=== PATIENT | male | born 1960 | race Caucasian/White ===

== ENCOUNTER 2025-02-11 21:51 | Emergency (ER) | payer BC, SELFPAY ==
[2025-02-11 21:53] VITALS: BP 150/103
[2025-02-11] MEDS: TORADOL 30 MG IM (22:39)
[2025-02-11 22:40] VITALS: BMI 30.9
[2025-02-11] MEDS: ROXICODONE 5 MG PO (23:28)
[2025-02-11 23:40] VITALS: BP 172/99
[2025-02-11 23:46] LABS: Body Fluid Mononuclear 9.4 %; Body Fluid Polymorphonuclear 90.6 %; Body Fluid WBC 71220 /CUMM
[2025-02-11 23:57] LABS: Body Fluid Second Tech MLT
--- NOTE | 2025-02-12 00:01 | ED.GENMED ---
History of Present Illness
General
Chief Complaint: Musculo-Skeletal Complaint
Time Seen by Provider: 02/11/25 22:07
History of Present Illness
History of Present Illness:
64-year-old male presents the emergency department for evaluation of traumatic effusion. He is unable to bear weight due to pain. No fevers or chills.
Review of Systems
Review of Systems
Allergies reviewed?: Yes
All Other Systems: ROS reviewed and negative except as documented in HPI and ROS
Phy Exam
Physical Exam
Physical Exam:
GEN: Well appearing, NAD, WDWN
HEENT: Oral mucosa moist, no scleral icterus
Cardiac: Regular rate
Lung: No respiratory distress, no tachypnea
MSK: Large right knee effusion, exquisite pain to palpation and with passive range of motion, no erythema or wounds
Skin: Good color, no pallor or jaundice, no rashes
Neuro: AO x3, moves all extremities freely
Psych: Calm, cooperative
Course
Orders/Labs/Results
Orders:
Orders
02/11/25 22:17
Ketorolac [Toradol] 30 mg IM NOW STA
CR Knee- Right 4 Or More View* Urgent
Comment:
Reason For Exam: non traumatic swelling
02/11/25 23:16
Oxycodone [Roxicodone] 5 mg PO NOW STA
02/11/25 23:24
Body Fluid Cell Count Urgent
What is the Body Fluid: joint
Date Specimen was Collected: 02/11/25
Time Specimen was Collected: 23:23
Comment: with DIFF
Body Fluid Crystals Urgent
What is the Body Fluid: joint
Date Specimen was Collected: 02/11/25
Time Specimen was Collected: 23:23
Fluid Culture with Gram Stain Urgent
MILADYS Source: Joint Fluid
Specimen Description:
Date Specimen was Collected: 02/11/25
Time Specimen was Collected: 23:23
Vital Signs
Initial and Last Documented VS:
Initial Vital Signs
Temp Pulse Resp BP Pulse Ox
98.7 F 101 20 150/103 96
02/11/25 21:53 02/11/25 21:53 02/11/25 21:53 02/11/25 21:53 02/11/25 21:53
Last Documented Vital Signs
Temp Pulse Resp BP Pulse Ox
98.7 F 84 16 156/92 99
02/11/25 21:53 02/12/25 00:55 02/12/25 00:55 02/12/25 00:55 02/12/25 00:55
Procedures
Incision/Drainage/Joint Aspiration
R knee:
Anethesia: 1% Lidocaine
Preparation: cleaned with Betadine
Type of procedure: aspiration
Nature of site: other (joint)
How much fluid was obtained?: number in mls (80)
Fluid description: cloudy
Treatment: bandaid applied
MDM/Problems Addressed
MDM/Problems Addressed:
Patient presenting with acute knee effusion nontraumatic. Arthrocentesis performed for over 80 cc of cloudy fluid. Initial cell count greater than 70,000 with no crystals thus Gram stain was reviewed showing. Likely inflammatory arthritis.
Recommend Ortho follow-up. Will send Lyme titer for completeness
*Critical Care Note
Total Time (30-74mins, 75-104mins- exclusive of procedures): Not Applicable
ED Attending Note
-
Portions of this chart may have been created with voice recognition software.� Occasional wrong word or��sound alike� substitutions may have occurred due to the inherent limitations of voice recognition software.
Discharge Plan
Departure
Patient Disposition: Home (Routine Discharge)
Date of Disposition: 02/12/25
Time of Disposition: 01:57
Patient with high blood pressure during this ER visit?: No
Discharge Problem:
Effusion of knee
Instructions: Swollen Joints (DC)
Prescriptions:
New
celecoxib [Celebrex] 200 mg capsule
200 mg PO BID Qty: 20 0RF
oxycodone 5 mg tablet
5 mg PO Q8H PRN (Reason: Pain) Qty: 10 0RF
Referrals:
[facility] [Other]
Shruthi Payne I., DO [Active] -
Activity Restrictions/Additional Instructions:
Elevate and ice the knee often
We will call if culture results are abnormal
Interventions
Interventions:
*Risk Screen - Suicide Last Done: 02/11/25 22:40
*General Assessment Last Done: 02/11/25 21:53
*Neglect/Abuse Screening Last Done: 02/11/25 22:40
*ED- Fall Risk Assessment Last Done: 02/11/25 22:40
*ED COVID-19 Vaccine History Last Done: 02/11/25 22:40
ED-Musculoskeletal Assessment Last Done: 02/11/25 23:00
Discharge Date and Time
Print Language: ESTONIAN
[2025-02-12 00:55] VITALS: BP 156/92
== END 2025-02-12 02:10 | disposition home or self-care (01) ==
LOC: EMR 21:51
PROVIDERS: Physician Assistant; EMERGENCY PHYSICIAN Emergency Medicine
DX: M25.461 Effusion, right knee (principal)
CPT/HCPCS: 99284; 20610; 96372; 73564; 86618; 87015; 87070; 87205; 89051; 89060

== ENCOUNTER 2025-02-14 14:53 | Inpatient (IN) | payer BC, SELFPAY ==
[2025-02-14] VITALS (13 sets, daily range): BP systolic 141–165; BP diastolic 88–104; BMI 28.7
--- NOTE | 2025-02-14 12:01 | ED.GENMED ---
History of Present Illness
General
Chief Complaint: Skin Problem
Source: patient
Exam Limitations: none
Time Seen by Provider: 02/14/25 11:59
Nursing documentation reviewed up to this point in time: agreed with
History of Present Illness
History of Present Illness:
This is a 64-year-old male with past medical history of high cholesterol, osteoarthritis who presents emergency department today with concerns of pain and swelling to the right knee. Patient reports that this has been going on for the past 3 days.
Patient reports that the pain started randomly and there is no obvious trauma to the knee. Patient denies any fevers or chills. Patient reports that when he was seen in our ER 3 days ago, he had joint fluid drained from his knee and states that
the swelling has not improved and now his knee feels firm he is getting swelling going down the leg. Patient states that he is unable to ambulate without crutches. Patient denies any nausea or vomiting, chest pain or shortness of breath. Patient
reports that he works in his garden a lot and was concerned he may have Lyme disease. Of note, patient did have 1 testing done days ago which was negative. 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
for Lyme. Patient states that he has been taking oxycodone at home for pain.
Review of Systems
Review of Systems
All Other Systems: ROS reviewed and negative except as documented in HPI and ROS
Phy Exam
Physical Exam
Physical Exam:
General: Patient is well appearing and in no acute distress; non-toxic
Skin: Warm and dry, no rashes or lesions
Head: Normocephalic, atraumatic
Eyes: Sclera non-icteric. EOMs intact.
Cardiac: Regular rate and rhythm, no murmurs
Peripheral Vascular: 2+ results pedis pulses bilaterally
Pulm: Normal respiratory effort, no wheezes, rales, or rhonchi
Musculoskeletal: Right suprapatellar swelling noted. Limited range of motion of right knee secondary to pain.
Neuro: CN II-XII intact, no focal neurologic deficits.
Psychiatric: Appropriate mood and affect.
Course
Orders/Labs/Results
Orders:
Orders
02/14/25 Lunch
NPO
Allow oral meds: No
Allow clear liquids: No
NPO with Ice Chips: No
02/14/25 12:08
IV Insert/Care/Rem.- Treatment PRN
02/14/25 12:19
CRP [C-Reactive Protein] Urgent
Complete Blood Count/With Diff Urgent
Comprehensive Metabolic Panel Urgent
ESR [Erythrocyte Sed Rate] Urgent
02/14/25 13:44
ORTHOPEDIC CONSULT Urgent
Consulting Provider: King Fontenot
Was physician already notified: Yes
0.9% Sodium Chloride 1000 ml [Nss] 1,000 ml IV BOLUS
Ketorolac [Toradol] 15 mg IV NOW STA
02/14/25 13:48
Vancomycin [Vancocin] 2,000 mg 0.9% Sodium Chloride 500 ml [Nss] 500 ml IV NOW
02/14/25 14:21
Fentanyl Citrate/Pf [Sublimaze] 25 mcg IV PACU-Q5MPRN PRN
Fentanyl Citrate/Pf [Sublimaze] 50 mcg IV PACU-Q5MPRN PRN
Meperidine [Demerol] 12.5 mg IV PACU-Q5MPRN PRN
Ondansetron Injectable [Zofran] 4 mg IV PACU-ONCEPRN PRN
Prochlorperazine [Compazine] 5 mg IV PACU-ONCEPRN PRN
Notify MD As Directed
Notify physician if: for SDS patients with known or suspected sleep obstructive sleep apnea, monitor in the
PACU.
Notify MD for any apneic/desaturation episodes
O2 Therapy [RESP] Urgent
Titrate/Wean O2 to maintain O2 sat greater than (%): 92
Special Instructions: -Provide supplemental oxygen to achieve O2 sat of 92% or greater.
-After 15 min, may wean O2 and discontinue if patient is able to maintain O2 sat of 92%
or greater during recovery period.
If patient is a discharge home, without oxygen therapy, notify anestheiologist if
unable to maintain O2 SAT of 92% or greater on room air for MD clearance.
02/14/25 14:23
Lidocaine HCl/Pf [Xylocaine-Mpf 1% Vial] 50 mg .ROUTE .STK-MED ONE
Propofol [Diprivan] 20 ml .ROUTE .STK-MED
02/14/25 14:25
Admit/Transfer Patient As Directed
Co-Sign Provider:
Level of Care: Inpatient admission
Assign to:: Medical/Surgical
Physician / Group: ecd
Diagnosis: septic arthritis
Reason for Hospitalization: septic arthritis
Expected length of stay greater than two midnights?: Yes
ELOS- Estimated Length of Stay in days: 3
I certify the patient meets the requirements for IP care: Yes
Povidone Iodine 10% Solution [Povidone Iodine 10%] 114 ml 0.9% Sod Chloride 3000 ml Irr [Nss Irrigation Bag] 3,000 ml IRRIG OR
PRN Pain Medication Management As Directed
May give lesser potent ordered pain med per pt: Yes
preference::
Protocol:: Medication orders for pain may be administered in a
manner that supports deferring to patient preference
when the pt is:
- Requesting an ordered lesser potent pain medication.
Least to most potent pain medications are defined
as: acetaminophen < NSAID < tramadol < opioids
(morphine, oxycodone, hydromorphone).
- Requesting a lesser dose of the same medication IF
ORDERED.
- Requesting a less intrusive route of administration
if both routes are prescribed by the provider (PO <
IV).
02/14/25 14:26
Code Status As Directed
Resuscitation Status: Full Code
02/14/25 14:30
Normosol (Mult Electrolytes) [Normosol-R/Plasmalyte-A] 1,000 ml IV PER PROTOCOL
02/14/25 14:34
Fentanyl Citrate/Pf [Sublimaze] 100 mcg .ROUTE .STK-MED ONE
02/14/25 14:35
Midazolam HCl [Versed] 2 mg .ROUTE .STK-MED ONE
02/14/25 14:49
Bupivacaine Mpf 0.25% [Sensorcaine-Mpf 0.25% Vial] 30 ml .ROUTE .STK-MED ONE
02/14/25 15:00
Blood Culture Q30M
MILADYS Source: Blood/Venous
Specimen Description:
02/14/25 15:30
Blood Culture Q30M
MILADYS Source: Blood/Venous
Specimen Description:
02/14/25 16:16
Acetaminophen [Tylenol] 650 mg PO Q4HPRN PRN
Bisacodyl [Dulcolax] 10 mg RECTAL [id number] PRN
Docusate W/Senna [Senokot-S] 1 tablet PO BIDPRN PRN
HYDROmorphone [Dilaudid] 0.5 mg IV Q4HPRN PRN
Polyethylene Glycol Powder [Miralax] 17 grams PO DAILYPRN PRN
02/14/25 16:16
INFECTIOUS DISEASE CONSULT Routine
Consulting Provider: Deirdre Rivera
Was physician already notified: Yes
Activity As Directed
Activity Level: As Tolerated
Pneumatic Compression Sleeves As Directed
Type: Knee high
Vital Signs As Directed
Frequency: Per unit guidelines
DX Deep Vein Thrombosis Video Routine
02/14/25 17:25
Pantoprazole [Protonix] 40 mg PO DAILYPRN PRN
02/15/25 06:00
Physical Therapy Consult [Pt Eval And Treat] IN AM
Activity Level: As Tolerated
02/15/25 08:00
Ezetimibe [Zetia] 10 mg PO DAILY
Rosuvastatin Calcium [Crestor] 20 mg PO DAILY
Abnormal Lab Results
02/14/25
12:19
RBC 4.06 L 10^6/uL
(4.70-6.10)
Hct 38.2 L %
(39.0-52.0)
MCV 94.1 H fL
(80.0-94.0)
MCH 32.8 H pg
(27.0-31.0)
Absolute Neuts (auto) 6.7 H 10^3/uL
(1.4-6.5)
Absolute Monos (auto) 0.8 H 10^3/uL
(0.1-0.6)
Lymphocytes % 14.7 L %
(20.5-51.1)
ESR 54 H mm/hour
(0-20)
Glucose 131 H mg/dl
(70-99)
C-Reactive Protein 183.20 H mg/L
(0.0-10.00)
02/14/25 12:19
02/14/25 12:19
Vital Signs
Initial and Last Documented VS:
Initial Vital Signs
Temp Pulse Resp BP Pulse Ox
99.2 F 103 16 148/94 98
02/14/25 10:47 02/14/25 10:47 02/14/25 10:47 02/14/25 10:47 02/14/25 10:47
Last Documented Vital Signs
Temp Pulse Resp BP Pulse Ox
98.6 F 94 16 146/91 94
02/14/25 19:45 02/14/25 19:45 02/14/25 19:45 02/14/25 19:45 02/14/25 19:45
MDM/Problems Addressed
Differential Diagnosis Includes:
Septic arthritis, inflammatory arthritis, gout, pseudogout
MDM/Problems Addressed:
64-year-old male presents emergency department today with concerns of atraumatic right knee pain and swelling. He was seen in our emergency department 3 days ago and had arthrocentesis done which showed greater than 50,000 white blood cells and
grew out Staph aureus. Ortho called into the ER, patient made n.p.o. for surgical washout. Patient started on vancomycin. Referred for admission.
Chronic conditions affecting care:
N/A
*Critical Care Note
Total Time (30-74mins, 75-104mins- exclusive of procedures): Not Applicable
ED Attending Note
-
Portions of this chart may have been created with voice recognition software.� Occasional wrong word or��sound alike� substitutions may have occurred due to the inherent limitations of voice recognition software.
Discharge Plan
Departure
Patient Disposition: Admit
Date of Disposition: 02/14/25
Time of Disposition: 13:46
Admit to: Med/Surg
Presentation/result/management discussed w/ accepting MD/DO: Hospitalist
Patient with high blood pressure during this ER visit?: Yes
Condition: Fair
Discharge Problem:
Septic arthritis
Interventions
Interventions:
*Risk Screen - Suicide Last Done: 02/14/25 10:47
*General Assessment Last Done: 02/14/25 15:01
*Neglect/Abuse Screening Last Done: 02/14/25 10:47
*ED- Fall Risk Assessment Last Done: 02/14/25 15:01
*ED COVID-19 Vaccine History Last Done: 02/14/25 15:01
*Nursing Disposition Last Done: 02/14/25 15:02
ED-Skin Assessment Last Done: 02/14/25 12:22
Discharge Date and Time
Discharge Date/Time: 02/14/25 15:03
[2025-02-14 12:28] LABS: % Basophils 0.6 % (0-2); % Eosinophils 0.8 % (0-6); % Immature Granulocytes 0.4 % (0-0.5); % Lymphocytes 14.7 % (20.5-51.1); % Monocytes 9.1 % (1.7-9.3); % Neutrophils 74.4 % (42.2-75.2); Absolute Basophils 0.1 10^3/uL (0-0.2); Absolute Eosinophils 0.1 10^3/uL (0-0.7); Absolute Lymphocytes 1.3 10^3/uL (1.2-3.4); Absolute Monocytes 0.8 10^3/uL (0.1-0.6); Absolute Neutrophils 6.7 10^3/uL (1.4-6.5); Hematocrit 38.2 % (39.0-52.0); Hemoglobin 13.3 g/dL (13.0-18.0); Mean Corp Hgb Conc. 34.8 g/dL (33.0-37.0); Mean Corpuscular Hgb 32.8 pg (27.0-31.0); Mean Corpuscular Volume 94.1 fL (80.0-94.0); Mean Platelet Volume 10.2 fL (7.4-10.4); Nucleated Red Blood Cells % 0 % (-); Platelet Count 206 10^3/uL (130-400); Red Blood Cell Count 4.06 10^6/uL (4.70-6.10); Red Cell Dist. Width 12.8 % (11.5-14.5); White Blood Cell Count 9.1 10^3/uL (4.8-10.8)
[2025-02-14 12:39] LABS: Erythrocyte Sed Rate 54 mm/hour (0-20)
[2025-02-14 12:42] LABS: ALT (SGPT) 30 U/L (0-50); AST (SGOT) 26 U/L (17-59); Albumin 4.3 g/dl (3.5-5.0); Alkaline Phosphatase 58 U/L (38-126); Blood Urea Nitrogen 13 mg/dl (9-20); Calcium 9.4 mg/dl (8.4-10.2); Carbon Dioxide 25 mmol/L (22-30); Chloride 100 mmol/L (98-107); Glucose 131 mg/dl (70-99); Potassium 4.6 mmol/L (3.5-5.1); Sodium 135 mmol/L (135-145); Total Bilirubin 0.8 mg/dl (0.2-1.3); eGFR > 60.00
[2025-02-14] MEDS: NSS 1000 IV (13:56)
[2025-02-14] MEDS: TORADOL 15 MG IV (13:57)
--- NOTE | 2025-02-14 14:04 | HPS.HSE ---
Addendum entered and electronically signed by Johnny Mcintosh MD 02/14/25 15:16:
I saw and examined the patient.
The TWISTING OPERATOR or PA's note was reviewed and I agree with the note.
Comment:
64-year-old male with past medical history of hyperlipidemia, osteoarthritis now presenting for right knee pain and swelling.� Symptoms have been going on for the last 3 days.� Initiated spontaneously.� No trauma to the knee, no sick contacts.�
Denies fever or chills.� No surgical intervention at that site.� He was seen in our ED 3 days ago, joint fluid was drained from his knee without improvement of swelling.� Further now feels like the knee has become more firm and swelling of gotten
worse, tracking down to the leg.� Denies fever, chills, nausea, vomiting, chest pain, shortness of breath.� Was on doxycycline empirically for Lyme disease although tested negative when testing was performed.� Cannot ambulate without crutches,
taking oxycodone at home for pain.� Temperature 99.2, respiratory rate 18, pulse 79, blood pressure 144/89.� CRP 183.2.� Moderate suprapatellar joint effusion on imaging.� Synovial fluid positive for Staph aureus.
Plan�Ortho consult.� Vancomycin.� Follow-up final cultures.� Pain control.� ID consult.
Original Note:
Family Physician
-
Family Physician: LINDA Guerra
Chief Complaint
-
right knee swelling, pain
History of Present Illness
64-year-old male with past medical history of high cholesterol, osteoarthritis , GERD who presents emergency department today with concerns of pain and swelling to the right knee since Sunday. patient was evaluated here in the ER on Sunday night.
arthrocentesis performed and fluid were positive for staph aureus. he tool Tylenol, oxycodone and Advil multiple times day since then with no improvement in his symptoms. patient started taking Doxy since Sunday, assuming it was tick bite.
Patient reports that the pain started randomly and there is no obvious trauma to the knee. Patient denies any fevers or chills. patient stated worsening swelling and pain.Patient states that he is unable to ambulate without crutches. Patient
denies any nausea or vomiting, chest pain or shortness of breath. denied dysuria or hematuria.
upon arrival noted to have elevated ESR and CRP. bldy fluid culture with staph. kerlineo given in ER. admitting for further management.
Medical History
Past Medical History
Past Medical History: Reports Other
Additional Past Medical History:
Hyperlipidemia, GERD
Past Surgical History: Reports Other
Additional Past Surgical History:
Achilles tendon repair
Social History
Tobacco: Non-smoker
Alcohol: Occasional
Drug: None
Personal:
Living: With Family
Family History
Family History: Not pertinent
Allergies / Home Medications
Allergies reflects when Allergies were last updated in [facility].
Home Medications with original date entered in [facility]
Allergy/Medication List:
Allergies
Allergy/AdvReac Type Severity Reaction Status Date / Time
Penicillins Allergy Unknown Verified 02/14/25 10:49
Home Medications
celecoxib 200 mg capsule (Celebrex) 200 mg PO BID #20 caps 02/12/25
acetaminophen 500 mg tablet (Tylenol Extra Strength) 1,000 mg PO DAILY 02/14/25
doxycycline hyclate 100 mg tablet,delayed release 100 mg PO BID 02/14/25
ezetimibe 10 mg tablet (Zetia) 10 mg PO DAILY 02/14/25
ibuprofen 200 mg tablet (Advil) 400 mg PO HS 02/14/25
omeprazole 20 mg capsule,delayed release 20 mg PO DAILYPRN PRN GERD 02/14/25
oxycodone 5 mg tablet 5 mg PO Q8HPRN PRN SEVERE Pain 02/14/25
polyethylene glycol 3350 17 gram oral powder packet (Miralax) 17 g PO DAILYPRN PRN CONSTIPATION 02/14/25
rosuvastatin 20 mg tablet (Crestor) 20 mg PO DAILY 02/14/25
therapeutic multivitamin 1 tab PO DAILY 02/14/25
Review of Systems
-
Constitutional: Reports No Symptoms
EENT: Reports No Symptoms
Respiratory: Reports No Symptoms
Cardiac: Reports No Symptoms
Abdomen/GI: Reports No Symptoms
: Reports No Symptoms
Musculoskeletal: Reports Edema (right knee swelling)
Skin: Reports No Symptoms
Neurological: Reports No Symptoms
Endocrine: Reports No Symptoms
Hematologic/Lymphatic: Reports No Symptoms
Psych: Reports No Symptoms
Physical Exam
Vital Signs
Vital Signs
Temp Pulse Resp BP Pulse Ox
99.2 F 79 18 144/89 98
02/14/25 10:47 02/14/25 13:57 02/14/25 13:57 02/14/25 13:57 02/14/25 13:57
Physical Exam
General: Well Developed, Well Nourished and No Apparent Distress
HEENT: NormoCephalic, Moist mucous membranes and Atraumatic
Respiratory: Clear
Cardiac: S1/S2 and Regular Rhythm; No Murmur or Rub
GI: Soft, Non Tender, Non Distended and Normal Bowel Sounds; No Organomegaly
Rectal: Deferred by Provider
Musculoskeletal: No Clubbing, No Cyanosis and Other (Right suprapatellar swelling noted. Limited range of motion of right knee secondary to pain. )
Skin: No Rash
Neuro: AO x 3 and Nonfocal/grossly intact
Psych: Calm
Laboratory Results
-
02/14/25 12:19
02/14/25 12:19
Laboratory Results
Total Bilirubin 0.8 mg/dl (0.2-1.3) 02/14/25 12:19
AST 26 U/L (17-59) 02/14/25 12:19
ALT 30 U/L (0-50) 02/14/25 12:19
Alkaline Phosphatase 58 U/L (38-126) 03/29/25 12:19
Data Reviewed
-
Diagnostic Radiology: Report Reviewed by me
Lab Data: Labs Reviewed by me
Impression/Plan
-
# Atraumatic right knee pain and swelling concern for septic arthritis
-Culture with Staph aureus
-Will keep patient n.p.o.
-IV vancomycin continued
-Dilaudid as needed for pain
-Orthopedic consulted
-X ray with the impression of No acute fracture or dislocation. Mild to moderate tricompartmental osteoarthritis. Moderate suprapatellar joint effusion. Soft tissues are grossly unremarkable
-ID consuletd
# Hyperlipidemia
-Zetia, Crestor continued
#GERD
-PPI
# DVT prophylaxis
-SCDs
#CODE STATUS
-Full code
[2025-02-14] MEDS: VANCOCIN 540 MG IV (14:23)
--- NOTE | 2025-02-14 14:53 | CON.ID ---
Consultation
-
Date/Time Consultation Requested: February 14, 2025 1430
Date/Time Consultation Performed: February 14, 2025 1700
Requesting Provider: LINDA Guzman
Performing Provider: Dr. Deirdre Rivera
Reason for Consultation: Septic knee
Chief Complaint / Past History
Chief Complaint
Painful swollen right knee
History of Present Illness
64-year-old male with history of knee osteoarthritis who developed acute onset of right knee swelling and pain on Saturday 02/10. No trauma. No fevers/chills. 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
arthritis. On ., he presented to the ER February 12 and underwent arthrocentesis. Synovial fluid with more than 71,000 white blood cells, 91% polys, negative crystals. He was discharged to home and to follow-up with Ortho. However today the
synovial fluid returned as Staphylococcus aureus. He was called to return to the ER. He received vancomycin. He was taken to the OR today status post washout. Patient denies history of MRSA. No recent open wounds. No other symptoms. 02/12 Lyme
screen negative.
Past History
Additional Past Medical History:
HLD
GERD
Osteoarthritis , b/l knees
Additional Past Surgical History:
Achilles tendon repair
Allergy History:
Penicillins Allergy (Verified 02/14/25 10:49)
Unknown
Medications Reviewed: Yes
Current Antibiotics:
Vancomycin D1
Oupt doxycycline (02/11 to 02/14)
Social History
Tobacco: Non-Smoker
Alcohol: Occasional
Drug: None
Personal:
Living: With Family
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
Family History
Family History: Not Pertinent
Review of Systems
Review of Systems
General: Negative Fever, Chills or Change in Appetite
HEENT: Negative Sinus Problems, Headache or Pharyngitis
Cardiovascular: Negative Chest Pain or Dyspnea
Respiratory: Negative Dyspnea or Cough
Gasteroenterology: Negative Nausea, Vomiting or Diarrhea
Genital / Urological: Negative Dysuria or Flank Pain
Endocrine: Negative Weakness
Skin / Hair / Nails: Negative Rash
Neurological: Negative Dizziness
All systems: All other systems were reviewed and were negative
Vital Signs
Temp Pulse Resp BP Pulse Ox
99.2 F 79 18 144/89 98
02/14/25 10:47 02/14/25 13:57 02/14/25 13:57 02/14/25 13:57 02/14/25 13:57
Physical Exam
Physical Exam
Constitutional: No Acute Distress and Comfortable
Cardiovascular: Regular Rate and S1/S2
Pulmonary: Clear
Gastrointestinal: Soft, Non Tender and Non Distended
Extremities: Negative Edema
Musculoskeletal: Other (right knee post-op dressing)
Neurological: AO x 3
Lab / Diagnostic Study Results
02/14/25 12:19
02/14/25 12:19
Abs Immat Gran (auto) 0.0 10^3/uL (0-0.05) 02/14/25 12:19
Absolute Neuts (auto) 6.7 10^3/uL (1.4-6.5) H 02/14/25 12:19
Absolute Lymphs (auto) 1.3 10^3/uL (1.2-3.4) 02/14/25 12:19
Absolute Monos (auto) 0.8 10^3/uL (0.1-0.6) H 02/14/25 12:19
Absolute Basos (auto) 0.1 10^3/uL (0-0.2) 02/14/25 12:19
Immature Gran % 0.4 % (0-0.5) 02/14/25 12:19
Neutrophils % 74.4 % (42.2-75.2) 02/14/25 12:19
Lymphocytes % 14.7 % (20.5-51.1) L 02/14/25 12:19
Monocytes % 9.1 % (1.7-9.3) 02/14/25 12:19
Eosinophils % 0.8 % (0-6) 02/14/25 12:19
Basophils % 0.6 % (0-2) 02/14/25 12:19
ESR 54 mm/hour (0-20) H 02/14/25 12:19
C-Reactive Protein 183.20 mg/L (0.0-10.00) H 02/14/25 12:19
Microbiology Results
02/11/25 right knee x-ray: No acute fracture or dislocation. Mild to moderate tricompartmental osteoarthritis. Moderate suprapatellar joint effusion. Soft tissues are grossly unremarkable.
Assessment / Plan
# Septic arthritis of [place] right knee
- Synovial fluid 71,000 wbc, 91% polys, no crystals. Cx Staph aureus
- 02/14 s/p OR washout. OR cx's pending.
-Continue Vancomycin while awaiting final cx's.
- Obtain 2 sets of blood cultures - suspect hematological seeding for joint.
--- NOTE | 2025-02-14 16:35 | CON.ORTHO ---
Documented by User: John Lopes PA-C 02/14/25 16:56
Consultation
-
Date/Time Consultation Requested: 02/14/2025 1344
Date/Time Consultation Performed: 02/14/2025 1440
Requesting Provider: MJ Herzog
Performing Provider: Dr. King Fontenot, MJ Lopes
Reason for Consultation: R knee septic arthritis
Consultation - Orthopedics
History
64 year old male presenting to [facility] for atraumatic increasing pain and swelling about the right knee, seen 4 days ago for the same issue at ER previously and underwent aspiration. He does have a known history of right knee
osteoarthritis. Patient denies any fevers or chills, reports pain is worsening despite APAP and NSAIDs and oxycodone, unable to bear weight. Patient denies any fevers or chills. denied dysuria or hematuria. Orthopedic Surgery was consulted as his
previous aspiration results showed a significantly elevated WBC count and cultures positive for staph with concern for septic arthritis. His did give him doxycycline as she was concerned for Lyme's disease as the possible etiology between ER
visits.
Allergies / Home Medications
Past Medical History
Past Medical History: Reports Other
Additional Past Medical History:
Hyperlipidemia, GERD
Past Surgical History: Reports Other
Additional Past Surgical History:
Achilles tendon repair
Social History
Tobacco: Non-smoker
Alcohol: Occasional
Drug: None
Personal:
Living: With Family
Family History
Family History: Not pertinent
Allergies / Home Medications
ROS- 12 point negative other than per HPI
Allergy/AdvReac Type Severity Reaction Status Date / Time
Penicillins Allergy Unknown Verified 02/14/25 10:49
�Medication �Instructions �Recorded
celecoxib 200 mg capsule (Celebrex) 200 mg PO BID #20 caps 02/12/25
acetaminophen 500 mg tablet 1,000 mg PO DAILY 02/14/25
(Tylenol Extra Strength)
doxycycline hyclate 100 mg 100 mg PO BID 02/14/25
tablet,delayed release
ezetimibe 10 mg tablet (Zetia) 10 mg PO DAILY 02/14/25
ibuprofen 200 mg tablet (Advil) 400 mg PO HS 02/14/25
omeprazole 20 mg capsule,delayed 20 mg PO DAILYPRN PRN GERD 02/14/25
release
oxycodone 5 mg tablet 5 mg PO Q8HPRN PRN SEVERE Pain 02/14/25
polyethylene glycol 3350 17 gram 17 g PO DAILYPRN PRN CONSTIPATION 02/14/25
oral powder packet (Miralax)
rosuvastatin 20 mg tablet (Crestor) 20 mg PO DAILY 02/14/25
therapeutic multivitamin 1 tab PO DAILY 02/14/25
Vital Signs / Lab Results
Temp Pulse Resp BP Pulse Ox
99.2 F 79 18 144/89 98
02/14/25 10:47 02/14/25 13:57 02/14/25 13:57 02/14/25 13:57 02/14/25 13:57
02/14/25 12:19
02/14/25 12:19
PHYSICAL EXAM:
General: Patient is well-nourished well-developed no acute distress conscious alert and oriented
MSK: Focused examination of the right lower extremity at the level of the knee shows skin is intact. He has a large effusion about the right knee. Mild erythema. Neurovascularly intact L3-S1. Range of motion 10 to 45 degrees and painful
throughout and not aggressively challenged. generalized tenderness about the right knee
IMAGING: Radiographs taken of the right knee independently reviewed showing no acute osseous abnormalities. There is advanced arthrosis of the medial compartment with tricompartmental degenerative changes.
LABS:
02/14/2025:
WBC: 9.1
CRP: 183.2
ESR: 54
02/11/2025 cultures rare presumptive Staphylococcus aureus; Gram stain shows no organisms
Assessment / Plan
64-year-old male presenting with atraumatic acute onset of right knee pain and swelling with previous aspiration with clinical exam laboratory values as well as cultures consistent with septic arthritis with Staphylococcus aureus on cultures
Operative and nonoperative interventions reviewed with the patient and respective family members to include the risks and benefits rehabilitation and prognosis for each with a recommendation of operative intervention and coordination with IV
antibiotics to best treat his infection. The treatment and operative technique, postoperative follow-up, postoperative rehabilitation and surgical prognosis was reviewed in detail. After thorough discussion of potential treatment options the
patient and respective family members wish to proceed with operative intervention.
The patient was seen and evaluated by Dr. Fontenot with the above recommendations and treatment plan to which the patient verified understanding and agreed with.
Consent was signed and laterality marked on patient skin. Currently on antibiotics. N.p.o.. Irrigation products on order

Documented by User: King Fontenot MD 02/15/25 08:18
Consultation - Orthopedics
History
64 year old male presenting to [facility] ER for atraumatic increasing pain and swelling about the right knee, seen 3 days ago for the same issue at ER previously and underwent aspiration. He does have a known history of right knee
osteoarthritis. Patient denies any fevers or chills, reports pain is worsening despite APAP and NSAIDs and oxycodone, unable to bear weight. Patient denies any fevers or chills. denied dysuria or hematuria. Orthopedic Surgery was consulted as his
previous aspiration results showed a significantly elevated nucleated cell count(~70,000) and cultures positive for Staph aureus (sensitivities pending) with concern for septic arthritis. His did give him doxycycline as she was concerned for
Lyme's disease as the possible etiology between ER visits.
[2025-02-14] MEDS: SUBLIMAZE 50 MCG IV (16:46)
--- NOTE | 2025-02-14 17:26 | PHA.VAN.IN ---
Assessment
- Assessment
Renal Function: Appears similar to baseline
AUC Dosing Plan
- Dosing Variables
Dosing Weight (kg): 91
Dosing CrCl (ml/min): 88
Vd coefficient (L/kg): 0.7
- Empiric Dosing
Initial / Loading Dose: 2000mg - 02/14 14:23
Maintenance Regimen: Vanc 1250mg Q12H starting 02/15 0600
Estimated AUC (mcg*h/mL): 536
Estimated Peak (mcg*h/mL): 32.4
Estimated Trough (mcg/ml): 14.4
Estimated Half Life (H): 8.9
- Monitoring
No levels ordered at this time: consider levels in next few days
Pharmacokinetics Vancomycin I
- -
Patient Age: 64
Patient Sex: Male
Vancomycin Day #: 1
Indication: Skin And Soft Tissue
Requesting Provider: Maik Liang
Pertinent Antimicrobial Allergies:
penicillins - unknown
Height / Weight:
Height 5 ft 10 in
Actual Weight 90.718 kg
- Vital Signs / Lab Results
Temp Pulse Resp BP Pulse Ox
98.2 F 80 14 162/98 99
02/14/25 17:16 02/14/25 17:16 02/14/25 17:16 02/14/25 17:15 02/14/25 17:16
Lab Results - Hematology
02/14/25
12:19
WBC 9.1
Lab Results - Chemistry
02/14/25
12:19
BUN 13
Creatinine 0.9
Albumin 4.3
[2025-02-14] MEDS: DILAUDID 0.5 MG IV (17:36)
--- NOTE | 2025-02-14 17:49 | PTCARENOTE ---
Received pt from PACU, dressing and elvi wrap CDI to right knee, VSS, 1Lo2, AAOx3, admission completed, oriented to room and call valdez, pain medication administered for 8/10 pain to right knee. Pt resting comfortably in bed at time, significant other
at bedside.
[2025-02-14] MEDS: LOW STRENGTH ASPIRIN 81 MG PO (19:59)
[2025-02-15] VITALS (7 sets, daily range): BP systolic 127–177; BP diastolic 83–104; PULSE 95; BMI 28.9
[2025-02-15] MEDS: VANCOCIN 275 MG IV (05:31)
[2025-02-15] MEDS: TYLENOL 650 MG PO (05:48)
[2025-02-15] MEDS: DILAUDID 0.5 MG IV ×3 (08:05→20:08)
[2025-02-15] MEDS: CRESTOR 20 MG PO (08:25)
[2025-02-15] MEDS: LOW STRENGTH ASPIRIN 81 MG PO ×2 (08:25→20:07)
[2025-02-15] MEDS: ZETIA 10 MG PO (08:25)
[2025-02-15 08:31] LABS: Hepatitis C Antibody Negative (Negative)
--- NOTE | 2025-02-15 10:00 | PHA.VAN.FU ---
Vancomycin Assessment / Plan
- Assessment
Renal Function: No New Labs Today
In the past 24 hrs, patient has been: Afebrile
- Dosing Plan
Continue: Vanc 1250mg IV Q12H
- Monitoring Plan
No level(s) ordered at this time: Order levels after 02/16 1800 dose
- Follow Up
Pharmacy will continue to follow.
Vancomycin Follow UP
- -
Patient Age: 64
Patient Sex: Male
Vancomycin Day #: 2
Indication: Skin And Soft Tissue
Requesting Provider: Maik Liang
Pertinent Antimicrobial Allergies:
penicillins - unknown
Height / Weight:
Height 5 ft 10 in
Actual Weight 91.263 kg
- Vital Signs / Lab Results
Temp Pulse Resp BP Pulse Ox
98.4 F 92 16 148/99 96
02/15/25 08:00 02/15/25 08:00 02/15/25 08:00 02/15/25 09:01 02/15/25 08:00
Lab Results - Hematology
02/14/25
12:19
WBC 9.1
Lab Results - Chemistry
02/14/25
12:19
BUN 13
Creatinine 0.9
Albumin 4.3
--- NOTE | 2025-02-15 10:20 | W.PN.ID1 ---
Date of Service
Date of Service: February 15, 2025
Today's Communication
Replace Vancomycin with cefazolin.
Assessment / Plan
# Septic arthritis of [place] right knee
- Synovial fluid 71,000 wbc, 91% polys, no crystals. Cx Staph aureus (MSSA)
- 02/14 s/p OR washout. OR cx's pending.
-2 sets of blood cultures pending .
- If blood cx's neg, place PICC.
-DC VAncomycin.
-Start cefazolin 2g IV q8h x 6 weeks through 03/29/25.
Chief Complaint
-: Other (Septic arthritis)
Subjective / Review of Systems
No complaints.
Vital Signs / Physical Exam
Vital Signs
Vital Signs
Temp Pulse Resp BP Pulse Ox
98.4 F 92 16 148/99 96
02/15/25 08:00 02/15/25 08:00 02/15/25 08:00 02/15/25 09:01 02/15/25 08:00
Physical Exam
Constitutional: No Acute Distress and Comfortable
Pulmonary: Clear
Gastrointestinal: Soft, Non Tender, Non Distended and Normal Bowel Sounds
Neurological: AO x 3
Objective Data
Lab Data
Lab Results
02/14/25 12:19
02/14/25 12:19
ESR 54 mm/hour (0-20) H 02/14/25 12:19
Total Bilirubin 0.8 mg/dl (0.2-1.3) 02/14/25 12:19
AST 26 U/L (17-59) 02/14/25 12:19
ALT 30 U/L (0-50) 02/14/25 12:19
Alkaline Phosphatase 58 U/L (38-126) 02/14/25 12:19
C-Reactive Protein 183.20 mg/L (0.0-10.00) H 02/14/25 12:19
Most recent labs reviewed.
Micro Results:
02/15/25 07:19 Blood Culture - Pending
Blood/Venous
02/15/25 06:48 Blood Culture - Pending
Blood/Venous
02/14/25 16:15 Wound Culture - Pending
Knee - Right Gram Stain - Pending
02/14/25 16:15 Anaerobic Culture - Pending
Knee - Right
02/14/25 16:15 Wound Culture - Pending
Knee - Right Gram Stain - Pending
02/14/25 16:15 Anaerobic Culture - Pending
Knee - Right
02/11/25 right knee x-ray: No acute fracture or dislocation. Mild to moderate tricompartmental osteoarthritis. Moderate suprapatellar joint effusion. Soft tissues are grossly unremarkable.
--- NOTE | 2025-02-15 10:30 | W.PN.ORTHO ---
Addendum entered and electronically signed by King Fontenot MD 02/15/25 14:22:
Cultues from 02/11/25 growing MSSA.
Original Note:
Today's Communication / Plan
-
64-year-old male postop day 1 right knee debridement irrigation for septic arthritis with Dr. Fontenot
-No growth to date from intraoperative cultures
-Currently on broad spectrum abx; ID following, appreciate recs/assistance
-Regular diet unless recommended otherwise per primary
-ASA 81 mg twice daily for DVT prophylaxis unless recommended otherwise per primary
-Pain regimen in place
-PT/OT/discharge planning. Weightbearing as tolerated and range of motion as tolerated
-Aquacel dressing in place; may shower but not soak/submerge. Maintain for 7 to 10 days and pallavi out at 2 weeks from date of surgery with clinical follow-up
Orthopedic surgery will continue to follow
Assessment
.
Distal Motor Intact: Yes
Dressing:
Clean, dry and intact.
Plan
.
Surgery / Date: 02/14/2025 right knee D&I w/ Dr. Fontenot
DVT Prophylaxis: Aspirin
Activity:
Out of bed.
PT/OT
Subjective
.
.:
Patient resting comfortably.
Vital Signs and Labs
.
Vital Signs and Labs:
Lab Results
02/14/25 12:19
02/14/25 12:19
Temp Pulse Resp BP Pulse Ox
98.4 F 92 16 148/99 96
02/15/25 08:00 02/15/25 08:00 02/15/25 08:00 02/15/25 09:01 02/15/25 08:00
Physical Exam
-
Focused examination of the right lower extremity at the level knee shows Geoffrey wrap without strikethrough. This removed showing intact Aquacel with minimal strikethrough. Range of motion not aggressively challenged for approximately 10 to 45
degrees. Neuro vastly intact L3-S1. Surrounding skin of his dressing shows no erythema. Minimal peripheral edema
--- NOTE | 2025-02-15 12:02 | CM ---
Patient with Dx Septic arthritis of [place] right knee s/p right knee debridement irrigation. Room air. WBAT. Aquacel dressing. Receiving IVF, IV Abx, IV Dilaudid prn. PT recommends Outpatient Therapy. OT; no OT needs upon dc.
Met with patient who resides with his in a 4 story house with 3-5 steps at entrance.
The patient was independent in ADLs and ambulation using his crutches.
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
DME - crutches, RW, SPC, w/c, shower chair
No prior VN or SNF.
PCP - Aryan Huang
Pharmacy - [facility]
Patient amenable to script for outpatient PT ---> message sent to John GARCIA with request for script.
Plan home with script for outpatient PT.
--- NOTE | 2025-02-15 12:17 | W.PN.HOSP.TC ---
Today's Communication/Plan
-
Follow cultures
Continue antibiotics
DVT prophylaxis
PT/OT
Assessment / Plan
Assessment / Plan
Physical Exam
General: Well Developed, Well Nourished and No Apparent Distress
HEENT: NormoCephalic, Moist mucous membranes and Atraumatic
Respiratory: Clear
Cardiac: S1/S2 and Regular Rhythm; No Murmur or Rub
GI: Soft, Non Tender, Non Distended and Normal Bowel Sounds; No Organomegaly
Rectal: Deferred by Provider
Musculoskeletal: No Clubbing, No Cyanosis and Other (right lower extremity at the level knee shows Geoffrey wrap without strikethrough. )
Skin: No Rash
Neuro: AO x 3 and Nonfocal/grossly intact
Psych: Calm
# Septic arthritis of the medial right knee
� Synovial fluid cultures growing MSSA
� Status post OR washout 02/14
� Follow-up OR cultures
� Follow-up blood cultures for possible seeding
� Discontinue vancomycin
� Start cefazolin for 6 weeks through 03/29/2025
� Aspirin 81 mg twice daily
� Pain regimen
� PT/OT
-Aquacel dressing in place; may shower but not soak/submerge. Maintain for 7 to 10 days and pallavi out at 2 weeks from date of surgery with clinical follow-up
�ID on board
# Hyperlipidemia
-Zetia, Crestor continued
#GERD
-PPI
# DVT prophylaxis
Aspirin 81 mg twice daily
#CODE STATUS
-Full code
Anticipated Discharge: 24 - 48 hours
Subjective/Interval History
-
Date of Service: February 15, 2025
Right knee debridement irrigation performed yesterday. Ambulating with crutches and physical therapy his morning
Objective Data
-
Vital Signs:
Vital Signs
Temp Pulse Resp BP Pulse Ox
98.3 F 93 16 157/99 98
02/15/25 11:25 02/15/25 11:25 02/15/25 11:25 02/15/25 11:25 02/15/25 11:25
I&O
02/14/25 02/15/25 02/16/25
06:59 06:59 06:59
Intake Total 480 / 480
Output Total 1500 / 1500
Balance -1020 / -1020
Review of Systems
-
History Source: Patient
All other systems: Not reviewed unless documented
Data Reviewed
-
Diagnostic Radiology: Report Reviewed by me
Labs: Labs Reviewed by me
[2025-02-15] MEDS: ANCEF 10 IV ×2 (13:46→21:37)
[2025-02-15] MEDS: FLUSH (NSS) 2 FLUSH IV (13:54)
[2025-02-16] MEDS: DILAUDID 0.5 MG IV ×5 (00:31→20:59)
--- NOTE | 2025-02-16 03:59 | PTCARENOTE ---
02/15 2345 pt's b/p 177/104 pt without complaints. pt's pain controlled 02/26 pt denies need for pain medication at this time. LANGUAGE ASST notified, no intervention at this time.
--- NOTE | 2025-02-16 04:33 | W.PN.ORTHO ---
Addendum entered and electronically signed by Rah Law PA-C 02/16/25 08:55:
Correction to previous note:
Patient is POD#1 open I&D right knee. Aquacel dressing removed to reveal a very approximated incision with isaiah intact. No drainage whatsoever. New aquacel dressing was applied. Again, may be removed in 7-10 days. [place] out in 2 weeks.
Original Note:
Documented by User: Rah Law PA-C 02/16/25 08:16
Today's Communication / Plan
-
Appreciate the primary team and ID, continue Tx
Dispo per CM- hopefully home when optimized
Message sent to Monica Riggs CM. As soon as Infusion benefits are realized he may D/c home with Tx via PICC
IV Ancef, follow intra-op cultures (pre-op aspiration 11 February MSSA+)
ASA 81mg BID for DVT ppx
WBAT ad mateo RLE. ROM OK
PT/OT
Aquacel dressing in place, may shower. Remove dressing 7-10 days
Elevation/ice/pain control
Isaiah out 2 weeks in office
Assessment
.
Distal Motor Intact: Yes
Dressing:
Clean, dry and intact. Aquacel dressing in place right knee
Assessment:
POD#1 arthroscopic washout right knee
Overall doing/feeling better
Calf soft, nontender
Plan
.
Surgery / Date: Right knee arthroscopic washout ()/14 February
DVT Prophylaxis: Aspirin
Activity:
Out of bed. WBAT ad mateo
PT/OT
Discharge Plan: Other (Appreciate CM)
Subjective
.
.:
Patient resting comfortably. Endorses mild pain to the right knee
Vital Signs and Labs
.
Vital Signs and Labs:
Temp Pulse Resp BP Pulse Ox
99.4 F 92 16 177/104 98
02/15/25 23:54 02/15/25 23:54 02/15/25 23:54 02/15/25 23:54 02/15/25 15:45

Documented by User: King Fontenot MD 02/16/25 08:37
Assessment
.
Assessment:
POD#2 Arthrotomy / I & D MSSA Infection Right Knee
Overall doing/feeling better
Calf soft, nontender
Plan
.
Surgery / Date: S/P Right Knee I & D for MSSA Infection 02/14.
Activity:
Out of bed. WBAT ad mateo
PT/OT
IV Cefazolin
PICC Line
[2025-02-16] MEDS: ANCEF 10 IV ×3 (05:20→22:42)
[2025-02-16 06:00] VITALS: BMI 29.0
[2025-02-16 07:28] VITALS: BP 152/87
[2025-02-16] MEDS: LOW STRENGTH ASPIRIN 81 MG PO ×2 (07:37→20:57)
[2025-02-16] MEDS: ZETIA 10 MG PO (07:37)
[2025-02-16] MEDS: CRESTOR 20 MG PO (07:38)
[2025-02-16 08:01] LABS: Hematocrit 36.6 % (39.0-52.0); Hemoglobin 12.8 g/dL (13.0-18.0); Mean Corpuscular Hgb 33.1 pg (27.0-31.0); Mean Corpuscular Volume 94.6 fL (80.0-94.0); Mean Platelet Volume 10.1 fL (7.4-10.4); Platelet Count 257 10^3/uL (130-400); Red Blood Cell Count 3.87 10^6/uL (4.70-6.10); Red Cell Dist. Width 12.5 % (11.5-14.5); White Blood Cell Count 8.7 10^3/uL (4.8-10.8)
[2025-02-16 08:38] LABS: ALT (SGPT) 26 U/L (0-50); AST (SGOT) 29 U/L (17-59); Alkaline Phosphatase 60 U/L (38-126); Blood Urea Nitrogen 14 mg/dl (9-20); Calcium 8.8 mg/dl (8.4-10.2); Carbon Dioxide 24 mmol/L (22-30); Chloride 100 mmol/L (98-107); Estimated Creatinine Clearance 99 ml/min; Glucose 121 mg/dl (70-99); Potassium 4.4 mmol/L (3.5-5.1); Sodium 135 mmol/L (135-145); Total Bilirubin 0.6 mg/dl (0.2-1.3); Total Protein 6.5 g/dl (6.3-8.2); eGFR > 60.00
--- NOTE | 2025-02-16 09:56 | CM ---
Addendum entered by Emily Israel RN 02/16/25 15:26:
Received information from [facility] Liaison. Patient has a yearly deductible of $1,250. Once yearly deductible met the insurance will pay 80% of cost. Once yearly [id number] deductible of $9,200 is met, patient is covered at 100%. Patient
informed of above. Waiting on liaison to inform when medication can be arranged. Patient needs PICC line placed and then cxr performed prior to discharge.
Original Note:
Reviewed the chart notes. Received IV abx script. Clinicals and script faxed to [facility]. PT recommending outpatient therapy. OT no needs. CM continues to be available to patient/family and is monitoring medical plan for needs at discharge.
Plan: Discharge to home with IV abx.
--- NOTE | 2025-02-16 11:04 | W.PN.HOSP.TC ---
Addendum entered and electronically signed by Liam Giordano MD 02/16/25 11:28:
BP has generally been in the elevated level
will start low dose Toprol XL and follow
Original Note:
Today's Communication/Plan
-
await clearance from ID to place PICC
decision as to abx post dc
Assessment / Plan
Assessment / Plan
# Septic arthritis of the medial right knee
� Synovial fluid cultures growing MSSA
� Status post OR washout 02/14
� Follow-up OR cultures
� Follow-up blood cultures for possible seeding
� Discontinued vancomycin
� Started cefazolin for 6 weeks through 03/29/2025
� Aspirin 81 mg twice daily
� Pain regimen
� PT/OT
-Aquacel dressing in place; may shower but not soak/submerge. Maintain for 7 to 10 days and pallavi out at 2 weeks from date of surgery with clinical follow-up
�ID on board
await clearance to place PICC, once blood cx demonstrate no growth
# Hyperlipidemia
-Zetia, Crestor continued
#GERD
-PPI
# DVT prophylaxis
Aspirin 81 mg twice daily
#CODE STATUS
-Full code
Anticipated Discharge: 24 - 48 hours
Subjective/Interval History
-
Date of Service: February 16, 2025
Awake, alert, conversant
Objective Data
-
Labs:
Laboratory Results
02/16/25
06:55
WBC 8.7
Hgb 12.8 L
Hct 36.6 L
Plt Count 257 D
Sodium 135
Potassium 4.4
Chloride 100
Carbon Dioxide 24
BUN 14
Creatinine 0.8
Glucose 121 H
Calcium 8.8
Total Bilirubin 0.6
AST 29
ALT 26
Alkaline Phosphatase 60
Vital Signs:
Vital Signs
Temp Pulse Resp BP Pulse Ox
98.6 F 94 16 152/87 98
02/16/25 07:28 02/16/25 07:28 02/16/25 07:28 02/16/25 07:28 02/16/25 08:40
I&O
02/15/25 02/16/25 02/17/25
06:59 06:59 06:59
Intake Total 480 / 480 0 / 0
Output Total 1500 / 1500 1400 / 1400
Balance -1020 / -1020 640 / 640
Review of Systems
-
History Source: Patient
Constitutional: Reports No Symptoms
EENT: Reports No Symptoms Reported
Respiratory: Reports No Symptoms
Cardiac: Reports No Symptoms
Abdomen/GI: Reports No Symptoms
Genitourinary: Reports No Symptoms
Musculoskeletal: Reports Joint Pain (Rt knee)
Physical Exam
-
General: Well Developed, Well Nourished and No Apparent Distress
HEENT: Normocephalic and Atraumatic
Respiratory: Clear to Auscultation; Negative Wheezes, Rales or Rhonchi
Cardiac: Regular Rhythm and S1/S2
GI: Soft, Nontender and Nondistended
Musculoskeletal: No Clubbing, No Cyanosis, No Edema and Other (rt knes slightly warm, swollen)
Neuro: Awake, Alert and Oriented
[2025-02-16] MEDS: TOPROL XL 25 MG PO (11:52)
--- NOTE | 2025-02-16 13:32 | W.PN.ID1 ---
Date of Service
Date of Service: February 16, 2025
Today's Communication
- place PICC.
-Continue cefazolin 2g IV q8h x 6 weeks through 03/29/25.
- Home infusion sheet submitted to case management.
Assessment / Plan
# Septic arthritis of [place] right knee
- Synovial fluid 71,000 wbc, 91% polys, no crystals. Cx Staph aureus (MSSA)
- 02/14 s/p OR washout. OR cx's MSSA
-2 sets of blood cultures neg to date.
- place PICC.
-Continue cefazolin 2g IV q8h x 6 weeks through 03/29/25.
- Home infusion sheet submitted to case management.
Chief Complaint
-: Other (Septic arthritis)
Subjective / Review of Systems
Feels well. Tolerating current abx.
Vital Signs / Physical Exam
Vital Signs
Vital Signs
Temp Pulse Resp BP Pulse Ox
98.6 F 92 16 149/91 98
02/16/25 07:28 02/16/25 11:52 02/16/25 07:28 02/16/25 11:52 02/16/25 08:40
Physical Exam
Constitutional: No Acute Distress and Comfortable
Cardiovascular: Regular Rate and S1/S2
Pulmonary: Clear
Gastrointestinal: Soft, Non Tender, Non Distended and Normal Bowel Sounds
Neurological: AO x 3
Objective Data
Lab Data
Lab Results
02/16/25 06:55
02/16/25 06:55
ESR 54 mm/hour (0-20) H 02/14/25 12:19
Estimated Creat Clear 99 ml/min 02/16/25 06:55
Total Bilirubin 0.6 mg/dl (0.2-1.3) 02/16/25 06:55
AST 29 U/L (17-59) 02/16/25 06:55
ALT 26 U/L (0-50) 02/16/25 06:55
Alkaline Phosphatase 60 U/L (38-126) 02/16/25 06:55
C-Reactive Protein 183.20 mg/L (0.0-10.00) H 02/14/25 12:19
Most recent labs reviewed.
Micro Results:
02/14/25 16:15 Anaerobic Culture - Preliminary
Knee - Right Culture pending. Anaerobic cultures are examined after 3
days incubation. Additional information to follow.
02/14/25 16:15 Wound Culture - Preliminary
Knee - Right Staphylococcus aureus
Gram Stain - Preliminary
02/14/25 16:15 Anaerobic Culture - Preliminary
Knee - Right Culture pending. Anaerobic cultures are examined after 3
days incubation. Additional information to follow.
02/14/25 16:15 Wound Culture - Preliminary
Knee - Right Gram Stain - Preliminary
02/15/25 07:19 Blood Culture - Preliminary
Blood/Venous No Growth in 24 hours- Final report to follow
02/15/25 06:48 Blood Culture - Preliminary
Blood/Venous No Growth in 24 hours- Final report to follow
02/11/25 right knee x-ray: No acute fracture or dislocation. Mild to moderate tricompartmental osteoarthritis. Moderate suprapatellar joint effusion. Soft tissues are grossly unremarkable.
[2025-02-16 15:07] VITALS: BP 142/82
[2025-02-16 22:53] VITALS: BP 121/82
[2025-02-17] MEDS: ROXICODONE 5 MG PO (02:11)
[2025-02-17] MEDS: ANCEF 10 IV ×2 (05:49→13:57)
[2025-02-17 06:00] VITALS: BMI 28.6
[2025-02-17 06:20] LABS: Hematocrit 35.8 % (39.0-52.0); Hemoglobin 12.5 g/dL (13.0-18.0); Mean Corp Hgb Conc. 34.9 g/dL (33.0-37.0); Mean Corpuscular Hgb 32.9 pg (27.0-31.0); Mean Corpuscular Volume 94.2 fL (80.0-94.0); Platelet Count 276 10^3/uL (130-400); Red Cell Dist. Width 12.6 % (11.5-14.5); White Blood Cell Count 7.6 10^3/uL (4.8-10.8)
[2025-02-17 06:53] LABS: ALT (SGPT) 27 U/L (0-50); AST (SGOT) 27 U/L (17-59); Alkaline Phosphatase 63 U/L (38-126); Blood Urea Nitrogen 12 mg/dl (9-20); Calcium 9.3 mg/dl (8.4-10.2); Carbon Dioxide 26 mmol/L (22-30); Chloride 100 mmol/L (98-107); Estimated Creatinine Clearance 113 ml/min; Glucose 122 mg/dl (70-99); Potassium 4.5 mmol/L (3.5-5.1); Sodium 136 mmol/L (135-145); Total Bilirubin 0.7 mg/dl (0.2-1.3); Total Protein 6.4 g/dl (6.3-8.2); eGFR > 60.00
[2025-02-17] MEDS: ZETIA 10 MG PO (07:35)
[2025-02-17] MEDS: TOPROL XL 25 MG PO (07:35)
[2025-02-17] MEDS: CRESTOR 20 MG PO (07:35)
[2025-02-17] MEDS: LOW STRENGTH ASPIRIN 81 MG PO (07:35)
[2025-02-17 07:40] VITALS: BP 121/78
--- NOTE | 2025-02-17 07:52 | W.PN.ORTHO ---
Today's Communication / Plan
-
64-year-old male POD #3 right knee arthrotomy/I&D for [place] septic arthritis 02/14/[address] Fontenot.
- Intra-op wound culture (+) Staph aureus.
- Per ID, continue Cefazolin 2g IV q8h x 6 weeks through 03/29/25. PICC placed. Appreciate ID.
- WBAT RLE. ROM as tolerated.
- ASA 81mg BID for DVT ppx.
- PT/OT as tolerated.
- Aquacel dressing in place, may shower. May remove dressing 7-10 days post-op. Staple removal at 2 weeks post-op in office.
- Elevation/ice/pain control
- D/C info updated. Post-op pain medication sent to [facility] [address]
Assessment
.
Distal Motor Intact: Yes
Dressing:
Clean, dry and intact.
Aquacel dressing in place right knee, CDI.
Assessment:
POD#3 Arthrotomy / I & D Right Knee
Plan
.
Surgery / Date: S/P Right Knee I & D for MSSA Infection 02/14.
DVT Prophylaxis: Aspirin
Activity:
Out of bed. WBAT ad mateo.
PT/OT.
Discharge Information:
Appreciate CM.
Subjective
.
.:
Patient resting comfortably in bedside chair. Endorses mild pain to the right knee. Denies any acute complaints or concerns at this time.
Vital Signs and Labs
.
Vital Signs and Labs:
Lab Results
02/17/25 05:14
02/17/25 05:14
Temp Pulse Resp BP Pulse Ox
98.8 F 96 16 121/78 98
02/17/25 07:40 02/17/25 07:40 02/17/25 07:40 02/17/25 07:40 02/17/25 07:48
[2025-02-17] MEDS: PERCOCET 5/325 1 TABLET PO ×2 (09:08→13:53)
--- NOTE | 2025-02-17 09:40 | W.PN.ID1 ---
Date of Service
Date of Service: February 17, 2025
Today's Communication
DC home when home IV abx set up and finalized.
Assessment / Plan
# Septic arthritis of paimiut right knee
- Synovial fluid 71,000 wbc, 91% polys, no crystals. Cx Staph aureus (MSSA)
- 02/14 s/p OR washout. OR cx's MSSA
-2 sets of blood cultures neg to date.
- PICC placed
-Continue cefazolin 2g IV q8h x 6 weeks through 03/29/25.
- Follow weekly CBC/diff, CMP, CRP
- Home infusion sheet submitted to case management 02/16.
- Follow-up with me in 4 weeks.
Chief Complaint
-: Other (Septic arthritis)
Subjective / Review of Systems
Waiting for discharge. No complaints.
Vital Signs / Physical Exam
Vital Signs
Vital Signs
Temp Pulse Resp BP Pulse Ox
98.8 F 96 16 121/78 98
02/17/25 07:40 02/17/25 07:40 02/17/25 07:40 02/17/25 07:40 02/17/25 09:17
Physical Exam
Constitutional: No Acute Distress and Comfortable
Cardiovascular: Regular Rate and S1/S2
Pulmonary: Clear
Gastrointestinal: Soft, Non Tender and Non Distended
Extremities: Edema (RLE 2+)
Wound: Other (Right knee dressing dry)
Lines: PICC (RUE intact)
Objective Data
Lab Data
Lab Results
02/17/25 05:14
02/17/25 05:14
ESR 54 mm/hour (0-20) H 02/14/25 12:19
Estimated Creat Clear 113 ml/min 02/17/25 05:14
Total Bilirubin 0.7 mg/dl (0.2-1.3) 02/17/25 05:14
AST 27 U/L (17-59) 02/17/25 05:14
ALT 27 U/L (0-50) 02/17/25 05:14
Alkaline Phosphatase 63 U/L (38-126) 02/17/25 05:14
C-Reactive Protein 183.20 mg/L (0.0-10.00) H 02/14/25 12:19
Most recent labs reviewed.
Micro Results:
02/14/25 16:15 Wound Culture - Preliminary
Knee - Right S aureus-Methicillin Sensitive
Gram Stain - Preliminary
02/14/25 16:15 Wound Culture - Preliminary
Knee - Right S aureus-Methicillin Sensitive
Gram Stain - Preliminary
02/15/25 07:19 Blood Culture - Preliminary
Blood/Venous No Growth in 48 hours- Final report to follow
02/15/25 06:48 Blood Culture - Preliminary
Blood/Venous No Growth in 48 hours- Final report to follow
02/14/25 16:15 Anaerobic Culture - Preliminary
Knee - Right Culture pending. Anaerobic cultures are examined after 3
days incubation. Additional information to follow.
02/14/25 16:15 Anaerobic Culture - Preliminary
Knee - Right Culture pending. Anaerobic cultures are examined after 3
days incubation. Additional information to follow.
02/11/25 right knee x-ray: No acute fracture or dislocation. Mild to moderate tricompartmental osteoarthritis. Moderate suprapatellar joint effusion. Soft tissues are grossly unremarkable.
--- NOTE | 2025-02-17 11:30 | CM ---
Addendum entered by Emily Israel RN 02/17/25 14:17:
CM consult for VN received. Patient declined.
Original Note:
Reviewed the chart notes and spoke with the patient at the beside. [facility] Liaison will be out today around 1pm for teaching. Patient will received 2pm dose of IV abx and discharge to home. [facility] will deliver his medication later
today to home. RN and attending updated. CM continues to be available to patient/family and is monitoring medical plan for needs at discharge.
Plan: Discharge to home with [facility] providing IV abx today.
--- NOTE | 2025-02-17 11:57 | PN.CDI ---
CDI
- -
CDI:
Physician Documentation Request
Admit Date: 02/14/25 14:53
Dear Doctor Po,
Patient admitted for septic arthritis.
Operative Note: 'The knee was then irrigated with 3 L of normal saline followed by 9 L of povidone-iodine irrigation using a [employer] telecommunications technician.'
02/15 Orthopedics PN: '64-year-old male postop day 1 right knee debridement irrigation for septic arthritis with Dr. Fontenot'
Could you provide, in the progress notes further clarification regarding the debridement.
Please specify the type of debridement performed:
1. Excisional Debridement - defined as removal by excision of devitalized tissue, necrosis or slough
2. Non-excisional debridement - defined as removal of devitalized tissue, necrosis or slough by such methods as irrigation, brushing, scrubbing or washing.
If the debridement was excisional, please also include:
1. Type of instrument used (#11 blade, #15 blade etc.)
2. What was excised (necrotic tissue, gangrenous tissue, slough etc.)
For excisional or non-excisional, please also include:
1. Depth of debridement (skin, subcutaneous tissue, fascia, muscle, bone etc)
2. Size and appearance of the wound (L, W, D, color of wound, drainage)
Use of terms such as suspected, likely, concern for, or probable (associated with a specific diagnosis that is being evaluated, monitored, or treated as if it exists) are acceptable and can be coded in the inpatient setting, when documented at the
time of discharge.
Thank you,
Amee Orlando RN, BSN
CDI Specialist
Available via [employer] text
Please use your independent medical judgment in providing your response.
--- NOTE | 2025-02-17 12:08 | W.PN.HOSP.TC ---
Today's Communication/Plan
-
will dc now
see dictated note
Assessment / Plan
Assessment / Plan
# Septic arthritis of the medial right knee
� Synovial fluid cultures growing MSSA
� Status post OR washout 02/14
� Blood Cx neg to date
� Started cefazolin for 6 weeks through 03/29/2025
� Aspirin 81 mg twice daily
� Pain regimen
� PT/OT
-Aquacel dressing in place; may shower but not soak/submerge. Maintain for 7 to 10 days and pallavi out at 2 weeks from date of surgery with clinical follow-up
�ID on board
await clearance to place PICC, once blood cx demonstrate no growth. Discussed with Dr. Rivera, does not need echocardiogram
# Hyperlipidemia
-Zetia, Crestor continued
#GERD
-PPI
# DVT prophylaxis
Aspirin 81 mg twice daily
#CODE STATUS
-Full code
More than 30 minutes spent in discharge including
Final examination of the patient
Summarizing hospital stay
Instructions for continuing care to all relevant caregivers
Preparation of discharge records, prescriptions, and referral forms
Total time spent (in minutes): 45
Anticipated Discharge: Today
Subjective/Interval History
-
Date of Service: February 17, 2025
Generally feels better and is anxiously awaiting dc
Objective Data
-
Labs:
Laboratory Results
02/17/25
05:14
WBC 7.6
Hgb 12.5 L
Hct 35.8 L
Plt Count 276
Sodium 136
Potassium 4.5
Chloride 100
Carbon Dioxide 26
BUN 12
Creatinine 0.7
Glucose 122 H
Calcium 9.3
Total Bilirubin 0.7
AST 27
ALT 27
Alkaline Phosphatase 63
Vital Signs:
Vital Signs
Temp Pulse Resp BP Pulse Ox
98.8 F 96 16 121/78 98
02/17/25 07:40 02/17/25 07:40 02/17/25 07:40 02/17/25 07:40 02/17/25 09:17
I&O
02/16/25 02/17/25 02/18/25
06:59 06:59 06:59
Intake Total 2039 / 2039 1360 / 1360 480 / 480
Output Total 1400 / 1400 400 / 400
Balance 640 / 640 1360 / 1360 80 / 80
Review of Systems
-
History Source: Patient
Constitutional: Reports No Symptoms
EENT: Reports No Symptoms Reported
Respiratory: Reports No Symptoms
Cardiac: Reports No Symptoms
Abdomen/GI: Reports No Symptoms
Genitourinary: Reports No Symptoms
Musculoskeletal: Reports Joint Pain (Rt knee)
Physical Exam
-
General: Well Developed, Well Nourished and No Apparent Distress
HEENT: Normocephalic and Atraumatic
Respiratory: Clear to Auscultation; Negative Wheezes, Rales or Rhonchi
Cardiac: Regular Rhythm and S1/S2
GI: Soft, Nontender and Nondistended
Musculoskeletal: No Clubbing, No Cyanosis, No Edema and Other (rt knes slightly warm, swollen)
Neuro: Awake, Alert and Oriented
[2025-02-17 14:09] VITALS: BP 119/78
--- NOTE | 2025-02-17 18:54 | W.DS.TRANS ---
DC Summary - [employer]
-
Discharge Instructions:
Diet No restrictions
Activity As tolerated
Driving Restrictions Not until seen by your Dr
Bathing Restrictions No water submersion
Blood Work CBC with diff, CMP, ESR, CRP weekly on Mondays,
results forwarded to Dr. Rivera
Other Services VN
Wound Care Dressing may be removed in 7-10 days
Instructions:
Stand-Alone Forms:
Changes to Home Medications: Yes
Discharge Medications:
DC Medications w/original date entered in [employer]
celecoxib 200 mg capsule (Celebrex) 200 mg PO BID #20 caps 02/12/25
ezetimibe 10 mg tablet (Zetia) 10 mg PO DAILY 02/14/25
omeprazole 20 mg capsule,delayed release 20 mg PO DAILYPRN PRN GERD 02/14/25
oxycodone 5 mg tablet 5 mg PO Q8HPRN PRN SEVERE Pain 02/14/25
polyethylene glycol 3350 17 gram oral powder packet (Miralax) 17 g PO DAILYPRN PRN CONSTIPATION 02/14/25
rosuvastatin 20 mg tablet (Crestor) 20 mg PO DAILY 02/14/25
therapeutic multivitamin 1 tab PO DAILY 02/14/25
acetaminophen 325 mg tablet 650 mg (2 x 325 mg) PO Q4HPRN PRN mild pain/COURTNEY/temp> 100.4F #0 tabs 02/17/25
aspirin 81 mg chewable tablet 81 mg PO BID #0 tabs 02/17/25
cefazolin 10 gram solution for injection 2 g IV Q8H #124 vials 02/17/25
metoprolol succinate 25 mg tablet,extended release 24 hr 25 mg PO DAILY #30 tabs 02/17/25
Home Medication Changes
Ancef 2 gms IV q8h until 03/29/25
Started Toprol XL 25 mg daily
Pending Results: No
== END 2025-02-17 15:18 | disposition home health service (06) | DRG 487 ==
LOC: 2 NORTH 14:53
PROVIDERS: Physician Assistant; Radiology Diagnostic Radiology; ADMITTING PHYSICIAN Internal Medicine; ATTENDING PHYSICIAN Internal Medicine; CONSULT PHYSICIAN Internal Medicine Infectious Disease; CONSULT PHYSICIAN Specialist; EMERGENCY PHYSICIAN Emergency Medicine; FAMILY PHYSICIAN Nurse Practitioner Family
PROC: 0S9C0ZZ Drainage of Right Knee Joint, Open Approach (ICD-10-PCS; 2025-02-14)
PROC: 02HV33Z Insertion of Infusion Device into Superior Vena Cava, Percutaneous Approach (ICD-10-PCS; 2025-02-16)
DX: M00.9 Pyogenic arthritis, unspecified (principal); B95.61 Methicillin susceptible Staphylococcus aureus infection as the cause of diseases classified elsewhere; I10 Essential (primary) hypertension; K21.9 Gastro-esophageal reflux disease without esophagitis; E78.00 Pure hypercholesterolemia, unspecified; Z88.0 Allergy status to penicillin; Z79.1 Long term (current) use of non-steroidal anti-inflammatories (NSAID)
CPT/HCPCS: 71045; 80053; 85025; 85027; 85652; 86140; 86803; 87040; 87070; 87075; 87147; 87186; 87205; 96365; 96366; 96375; 97116; 97163; 97166; 97530; 99284

== ENCOUNTER → 2025-04-16 10:02 | Outpatient (REF) | payer BC, SELFPAY ==
[2025-04-16 10:54] LABS: % Basophils 0.8 % (0-2); % Eosinophils 1.1 % (0-6); % Immature Granulocytes 0.4 % (0-0.5); % Lymphocytes 28.8 % (20.5-51.1); % Monocytes 10.7 % (1.7-9.3); % Neutrophils 58.2 % (42.2-75.2); Absolute Eosinophils 0.1 10^3/uL (0-0.7); Absolute Lymphocytes 1.4 10^3/uL (1.2-3.4); Absolute Monocytes 0.5 10^3/uL (0.1-0.6); Absolute Neutrophils 2.8 10^3/uL (1.4-6.5); Hematocrit 39.3 % (39.0-52.0); Hemoglobin 13.6 g/dL (13.0-18.0); Mean Corp Hgb Conc. 34.6 g/dL (33.0-37.0); Mean Corpuscular Hgb 32.7 pg (27.0-31.0); Mean Corpuscular Volume 94.5 fL (80.0-94.0); Mean Platelet Volume 10.2 fL (7.4-10.4); Nucleated Red Blood Cells % 0 % (-); Platelet Count 209 10^3/uL (130-400); Red Blood Cell Count 4.16 10^6/uL (4.70-6.10); Red Cell Dist. Width 13.6 % (11.5-14.5); White Blood Cell Count 4.8 10^3/uL (4.8-10.8)
[2025-04-16 11:45] LABS: Erythrocyte Sed Rate 20 mm/hour (0-20)
== END ==
LOC: REG 10:02
PROVIDERS: ATTENDING PHYSICIAN Physician Assistant Surgical
DX: M00.061 Staphylococcal arthritis, right knee (principal)
CPT/HCPCS: 36415; 85025; 85652; 86140